=== PATIENT | female | born 1985 | race Hispanic/Latino ===

== ENCOUNTER 2017-08-05 17:51 | Emergency (ER) | payer SELFPAY ==
[~2017-08-05] VITALS: Ht 149.9 cm; Wt 86.2 kg
[2017-08-05] MEDS ORDERED: KETOROLAC TROMETHAMINE 60 MG/2 ML VIAL IM ONE (19:00)
== END 2017-08-05 19:30 | disposition home or self-care (01) ==
LOC: FSED 17:51
DX: M25.561 Pain in right knee (principal); M71.561 Other bursitis, not elsewhere classified, right knee; R26.2 Difficulty in walking, not elsewhere classified; F41.9 Anxiety disorder, unspecified; R03.0 Elevated blood-pressure reading, without diagnosis of hypertension
CPT/HCPCS: 99283; J1885